=== PATIENT | male | born 1955 | race Caucasian/White ===

== ENCOUNTER 2018-06-04 12:56 | Inpatient (IN) | payer BC ==
[~2018-06-04] VITALS: Ht 185.4 cm; Wt 129.5 kg
[2018-06-04] MEDS ORDERED: DIPHENHYDRAMINE 25 MG CAPSULE PO ONE (13:30)
[2018-06-04] MEDS ORDERED: FAMOTIDINE 20 MG TABLET PO ONE (13:30)
[2018-06-04] MEDS ORDERED: FAMOTIDINE 20 MG TABLET ONE (13:53)
[2018-06-04] MEDS ORDERED: DIPHENHYDRAMINE 25 MG CAPSULE ONE (13:53)
[2018-06-04 14:25] LABS: BASOPHILS # (AUTO) 0.03 x10^3/uL (0-0.1); BASOPHILS % (AUTO) 0 % (0-1); EOSINOPHILS % (AUTO) 0 % (1-7); LYMPHOCYTES # (AUTO) 2.12 x10^3/uL (1-3.4); LYMPHOCYTES % (AUTO) 24 % (22-44); MD NO; MEAN CORPUSCULAR HGB CONC 33.8 g/dL (33.2-36.2); MEAN CORPUSCULAR VOLUME 97.7 fL (81-97); MEAN PLATELET VOLUME 7.1 fL (7.4-10.4); MONOCYTES # (AUTO) 0.68 x10^3/uL (0.2-0.8); MONOCYTES % (AUTO) 8 % (2-9); NEUTROPHILS # (AUTO) 5.91 x10^3/uL (1.8-6.8); NEUTROPHILS % (AUTO) 68 % (42-75); PLATELET COUNT 225 x10^3/uL (130-400); RED BLOOD COUNT 4.91 x10^6/uL (4.38-5.82); RED CELL DISTRIBUTION WIDTH 13.8 % (9.4-14.8)
[2018-06-04 14:37] LABS: ALBUMIN 3.6 g/dL (3.4-5.0); ANION GAP 9 mmol/L (5-15); CALCIUM 8.8 mg/dL (8.5-10.1); CHLORIDE 109 mmol/L (98-107); CREATININE 1.47 mg/dL (0.7-1.3)
[2018-06-04 14:40] LABS: TROPONIN I < 0.015 ng/mL (0.000-0.045)
--- NOTE | 2018-06-04 15:00 | NUR ---
SBAR report received from RN, Gigi. Dr. Walker at bedside to discuss ED findings and POC.
[2018-06-04] MEDS ORDERED: ASCORBIC ACID PO (15:31)
[2018-06-04] MEDS ORDERED: LISINOPRIL PO (15:31)
[2018-06-04] MEDS ORDERED: [UNRECOGNIZED DRUG - CODE] PO (15:31)
[2018-06-04] MEDS ORDERED: METO50TA82 PO (15:31)
--- NOTE | 2018-06-04 15:45 | NUR ---
[employer] RN student at bedside with instructor for IV start.
--- NOTE | 2018-06-04 16:00 | NUR ---
Dr. Dubois at bedside to evaluate pt for admission.
[2018-06-04] MEDS ORDERED: methylPREDNISolone SOD SUCC 125 MG/2 ML ONE (16:07)
--- NOTE | 2018-06-04 16:15 | NUR ---
Telephone SBAR, report called to RNMargar[facility]. Pt made aware of new room assignment.
[2018-06-04] MEDS ORDERED: ONDANSETRON 2MG/ML, 2ML IVPush PRN (16:30)
[2018-06-04] MEDS ORDERED: hydrALAzine 20 MG/ML, 1ML IVPush PRN (16:30)
[2018-06-04] MEDS ORDERED: ACETAMINOPHEN 325 MG TABLET PO PRN (16:30)
[2018-06-04] MEDS ORDERED: DIPHENHYDRAMINE 50 MG/ML, 1ML ONE (16:30)
[2018-06-04] MEDS ORDERED: methylPREDNISolone SOD SUCC 125 MG/2 ML IVPush ONE (16:30)
[2018-06-04] MEDS: DIPHENHYDRAMINE 50 MG/ML, 1ML IVPush PRN ×2 (16:33→23:25)
--- NOTE | 2018-06-04 17:06 | NUR ---
Telephone SBAR report called to Makeda GUEVARA. Pt made aware of new room assignment.
[2018-06-04] MEDS: METOPROLOL TARTRATE 25 MG TABLET PO SCH (18:00)
[2018-06-04] MEDS: methylPREDNISolone SOD SUCC 125 MG/2 ML IVPush SCH ×2 (18:20→23:25)
[2018-06-04] MEDS: LACTATED RINGERS 1,000 ML IV SCH (18:21)
[2018-06-04 21:06] VITALS: BP 121/69
[2018-06-04] MEDS: FAMOTIDINE 20 MG TABLET PO SCH (21:20)
[2018-06-04] MEDS ORDERED: SULF-169 PO (21:38)
[2018-06-04] MEDS ORDERED: HYDR25TA6 PO (21:38)
[2018-06-04] MEDS ORDERED: METR-90 PO (21:38)
[2018-06-04] MEDS ORDERED: LISI-170 PO (21:38)
[2018-06-04] MEDS ORDERED: METO-264 PO (21:38)
[2018-06-05] MEDS: LACTATED RINGERS 1,000 ML IV SCH ×4 (01:03→22:04)
[2018-06-05 02:42] VITALS: BP 121/61
[2018-06-05 04:49] LABS: BASOPHILS # (AUTO) 0.01 x10^3/uL (0-0.1); BASOPHILS % (AUTO) 0 % (0-1); EOSINOPHILS % (AUTO) 0 % (1-7); LYMPHOCYTES # (AUTO) 0.98 x10^3/uL (1-3.4); LYMPHOCYTES % (AUTO) 10 % (22-44); MD NO; MEAN CORPUSCULAR HEMOGLOBIN 33.7 pg (27.5-34.5); MEAN CORPUSCULAR HGB CONC 34.4 g/dL (33.2-36.2); MEAN CORPUSCULAR VOLUME 97.8 fL (81-97); MEAN PLATELET VOLUME 7.3 fL (7.4-10.4); MONOCYTES # (AUTO) 0.07 x10^3/uL (0.2-0.8); MONOCYTES % (AUTO) 1 % (2-9); NEUTROPHILS # (AUTO) 8.74 x10^3/uL (1.8-6.8); NEUTROPHILS % (AUTO) 89 % (42-75); PLATELET COUNT 238 x10^3/uL (130-400); RED BLOOD COUNT 4.63 x10^6/uL (4.38-5.82); RED CELL DISTRIBUTION WIDTH 13.9 % (9.4-14.8)
[2018-06-05 05:02] LABS: ALANINE AMINOTRANSFERASE 98 U/L (12-78); ALBUMIN 3.1 g/dL (3.4-5.0); ANION GAP 7 mmol/L (5-15); CALCIUM 8.7 mg/dL (8.5-10.1); CHLORIDE 113 mmol/L (98-107); CREATININE 1.42 mg/dL (0.7-1.3)
[2018-06-05 05:04] LABS: ALKALINE PHOSPHATASE 43 U/L (45-117); BILIRUBIN,TOTAL 0.5 mg/dL (0.2-1.0); TOTAL PROTEIN 6.5 g/dL (6.4-8.2)
[2018-06-05 06:14] VITALS: BP 121/68
[2018-06-05] MEDS: METOPROLOL TARTRATE 25 MG TABLET PO SCH ×2 (06:17→17:48)
[2018-06-05] MEDS: methylPREDNISolone SOD SUCC 125 MG/2 ML IVPush SCH ×4 (06:17→23:27)
[2018-06-05] MEDS: DIPHENHYDRAMINE 50 MG/ML, 1ML IVPush PRN ×2 (06:17→12:42)
[2018-06-05 06:36] VITALS: BP 102/55
[2018-06-05] MEDS: FAMOTIDINE 20 MG TABLET PO SCH ×2 (08:58→20:56)
[2018-06-05] MEDS: HYDROCHLOROTHIAZIDE 25 MG TABLET PO SCH (08:58)
[2018-06-05] MEDS: POLYETHYLENE GLYCOL 17 GM PACKET PO SCH (09:01)
[2018-06-05 12:20] VITALS: BP 129/84
[2018-06-05 22:48] VITALS: BP 132/68
[2018-06-06 02:24] VITALS: BP 133/66
[2018-06-06] MEDS: methylPREDNISolone SOD SUCC 125 MG/2 ML IVPush SCH ×2 (05:02→11:48)
[2018-06-06] MEDS: LACTATED RINGERS 1,000 ML IV SCH ×2 (05:02→11:30)
[2018-06-06] MEDS: METOPROLOL TARTRATE 25 MG TABLET PO SCH (05:21)
[2018-06-06 07:41] VITALS: BP 126/78
[2018-06-06] MEDS: POLYETHYLENE GLYCOL 17 GM PACKET PO SCH (08:21)
[2018-06-06] MEDS: FAMOTIDINE 20 MG TABLET PO SCH (08:21)
[2018-06-06] MEDS: HYDROCHLOROTHIAZIDE 25 MG TABLET PO SCH (08:22)
[2018-06-06] MEDS ORDERED: DIPH50CA PO (11:26)
[2018-06-06] MEDS ORDERED: FAMO20TA7 PO (11:26)
[2018-06-06] MEDS ORDERED: PRED10TA PO (11:26)
== END 2018-06-06 12:37 | disposition home or self-care (01) | DRG 606 ==
LOC: ED 14:52 → EDIP 15:15 → 4WST 17:27 → DCLOUNGE 06-06 12:20
PROVIDERS: ADMIT Internal Medicine; ATTEND Internal Medicine
PROC: 5A09357 Assistance with Respiratory Ventilation, Less than 24 Consecutive Hours, Continuous Positive Airway Pressure (ICD-10-PCS; principal; 2018-06-05)
DX: L50.0 Allergic urticaria (principal); N17.0 Acute kidney failure with tubular necrosis; M79.89 Other specified soft tissue disorders; E66.01 Morbid (severe) obesity due to excess calories; I10 Essential (primary) hypertension; T37.0X5A Adverse effect of sulfonamides, initial encounter; R21 Rash and other nonspecific skin eruption; L29.9 Pruritus, unspecified; M25.40 Effusion, unspecified joint; Z80.3 Family history of malignant neoplasm of breast; Z80.42 Family history of malignant neoplasm of prostate; Z90.49 Acquired absence of other specified parts of digestive tract; Z72.89 Other problems related to lifestyle; Y92.89 Other specified places as the place of occurrence of the external cause
CPT/HCPCS: 36415; 71045; 80048; 80053; 82040; 83735; 84100; 84484; 85025; 86430; 93005; 96374; G0378; J1200; J2930; J7120; J7512; Q0163